=== PATIENT | male | born 1945 | race Caucasian/White ===

== ENCOUNTER 2016-07-26 09:00 | Emergency (ER) | payer OTHER ==
[~2016-07-26] VITALS: Ht 175.3 cm; Wt 95.0 kg
[~2016-07-26 09:00] MED LIST: BACTRIM,SEPT1 TABLET PO; BENADRYL25 MG PO; FINASTERIDE5 MG PO; MUPIROCIN22 GM TP; NICOTINE PATCH1 EAC2 TD; PEPCID20 MG PO; PREDNISONE10 MG PO; PREDNISONE20 MG PO; PREDNISONE5 M1 PO; SILVADENE20 GM TP; SILVER SULFADIA50 GM TP; SIMVASTATIN40 MG PO; ZYVOX600 MG PO
[2016-07-26 11:01] LABS: EOSINOPHIL (%) 0.2 % (0-5); HEMATOCRIT 47.4 % (38.0-50.0); IMMATURE GRANULOCYTE (%) 0.5 % (0.0-0.7); INSTRUMENT ABS NEUTROPHIL CT 4.1 K/uL; LYMPHOCYTE COUNT 1.6 K/uL (1.0-2.8); MCH 32.2 PG (29.0-34.0); MCHC 33.3 G/DL (30.0-36.0); MCV 96.7 FL (86-99); MEAN PLAT.VOLUME 9.7 uM^3 (9.0-12.4); MONOCYTE (%) 12.9 % (3-12); MONOCYTE COUNT 0.9 K/uL (0-0.8); NEUTROPHIL (%) 62.7 % (45-76); NEUTROPHIL COUNT 4.1 K/uL (1.8-6.4); PLATELET COUNT 352 K/uL (156-360); RBC DIS.WIDTH-CV 12.7 % (11.8-14.6); RBC DIS.WIDTH-SD 45.7 % (39-53); WHITE BLOOD COUNT 6.6 K/uL (4.1-10.2)
[2016-07-26 11:29] LABS: CHLORIDE 100 mEq/L (99-109); POTASSIUM 4.1 mEq/L (3.7-5.4); SODIUM 135 mEq/L (136-147)
[2016-07-26 11:30] LABS: GLUCOSE 118 mg/dL (70-99)
[2016-07-26 11:32] LABS: ANION GAP 12 MEQ/L (2-14)
[2016-07-26 11:34] LABS: GFR ESTIMATE (CALCULATED) > 59 mL/min/
[2016-07-26 11:35] LABS: UREA NITROGEN (BUN) 19 mg/dL (9-23)
[2016-07-26 11:38] LABS: TROP-I INTERPRETATION NEGATIVE; TROPONIN-I < 0.01 ng/mL (0.0-0.30)
[2016-07-26 11:51] LABS: ERTH.SED.RATE 84 MM/HR (0-20)
[2016-07-26] MEDS ORDERED: KEFLEX500 MG PO (12:37)
[2016-07-26] MEDS ORDERED: PERCOCET 5/31 TABLET PO (12:37)
[2016-07-26 12:55] VITALS: BP 110/74
== END 2016-07-26 12:55 | disposition home or self-care (01) ==
LOC: EME 09:00
PROVIDERS: Emergency Medicine
DX: M70.51 Other bursitis of knee, right knee (principal); M79.89 Other specified soft tissue disorders; I25.10 Atherosclerotic heart disease of native coronary artery without angina pectoris; I25.2 Old myocardial infarction; F17.200 Nicotine dependence, unspecified, uncomplicated; R91.1 Solitary pulmonary nodule; R06.02 Shortness of breath
CPT/HCPCS: 71010; 73564; 80048; 83880; 84484; 85025; 85651; 93005; 93971; 99281; 99285; J0690; J7050